=== PATIENT | male | born 1975 | race Hispanic/Latino ===

== ENCOUNTER 2017-06-25 21:28 | Emergency (ER) | payer SELFPAY ==
[2017-06-25 23:22] LABS: INFLUENZA A NONE DETECTED (NONE DETECT); INFLUENZA B NONE DETECTED (NONE DETECT)
[2017-06-25] MEDS ORDERED: AMOXICILLIN500 MG PO (23:30)
[2017-06-25 23:57] VITALS: BP 128/85
== END 2017-06-25 23:57 | disposition home or self-care (01) | DRG 153 ==
LOC: ED 21:28
PROVIDERS: Emergency Medicine
DX: J02.0 Streptococcal pharyngitis (principal); H66.91 Otitis media, unspecified, right ear